=== PATIENT | male | born 1995 | race American Indian/Alaskan Native ===

== ENCOUNTER 2016-10-16 13:11 | Emergency (ER) | payer OTHER ==
[2016-10-16 15:00] LABS: Anion Gap 19 mmol/L; BUN/Creatinine Ratio 21.42; Blood Urea Nitrogen 15 mg/dL (9-20); Calcium 8.8 mg/dL (8.4-10.2); Carbon Dioxide 23 mmol/L (22-30); Chloride 104.3 mmol/L (98-107); Glucose 88 mg/dL (75-100); Potassium 3.6 mmol/L (3.6-5.0); Sodium 143 mmol/L (137-145)
[2016-10-16 15:13] LABS: Hematocrit 44.8 % (35.5-45.6); Hemoglobin 15.3 gm/dl (11.8-15.2); Mean Corpuscular HGB Conc 34 % (32-34); Mean Corpuscular Hemoglobin 30 pg (28-32); Mean Corpuscular Volume 87 fl (84-94); Platelet Count 216 K/mm3 (140-440); Red Blood Count 5.14 M/mm3 (3.65-5.03); Red Cell Distribution Width 13.1 % (13.2-15.2); White Blood Count 7.1 K/mm3 (4.5-11.0)
[2016-10-16 15:14] LABS: Basophils % (Auto) 0.3 % (0.0-1.8); Eosinophils % (Auto) 0.3 % (0.0-4.3)
--- NOTE | 2016-10-16 17:33 | Emergency Department Report ---
Entered by BO SIMPSON, acting as scribe for RADHA NGO PA. ED Chest Pain HPI - General Chief Complaint: Chest Pain Stated Complaint: CHEST PAIN Time Seen by Provider: 10/16/16 16:18 Source: patient Mode of arrival: Ambulatory Limitations: No Limitations - History of Present Illness Initial Comments: 21 year old male with no significant PMHx, presents to ED with chest pain and anxiety attacks for 4 months. 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 He notes his heart feels like it is racing when he wakes up and breaks out into sweats. Patient states he has been working at this job for 9 months, but symptoms started within 4 months of working. He reports symptoms are aggravated while standing and alleviated by sitting down and taking deep breaths. Patient also notes he lost 30 lbs over a period of time. Patient denies any stress, but reports FHx of anxiety problems. Patient smokes cigarettes intermittent and drink EtOH occasionally, but denies drug usage. NKDA. LYON Complaint: chest pain -: month(s) (4 months ) Onset: awoke with symptoms Pain Radiation: none Severity: Unable to Determine Consistency: constant Improves With: rest, remaining still Worsens With: movement re: denies: nausea, vomting, dyspnea Other Symptoms: denies: cough, fever, leg swelling, palpitations, burping Treatments Prior to Arrival: none - Related Data Previous Rx's Medication Instructions Recorded Last Taken Type hydrOXYzine PAMOATE [Vistaril] 25 mg PO Q6HR PRN #20 capsule 10/16/16 Unknown Rx Allergies Allergy/AdvReac Type Severity Reaction Status Date / Time No Known Allergies Allergy Verified 10/16/16 13:27 Heart Score - HEART Score History: Slightly suspicious EKG: Non-specific Age: < 45 Risk factors: No known risk factors Troponin: < normal limit HEART Score: 1 - Critical Actions Critical Actions: 0-3 pts:0.9-1.7%risk of adverse cardiac event.Candidate for discharge ED Review of Systems Comment: All other systems reviewed and negative Constitutional: diaphoresis. denies: chills, fever, weakness Eyes: denies: eye pain, eye discharge, vision change ENT: denies: ear pain, throat pain Respiratory: denies: cough, shortness of breath, wheezing Cardiovascular: chest pain. denies: palpitations Endocrine: no symptoms reported Gastrointestinal: denies: abdominal pain, nausea, vomiting, diarrhea Genitourinary: denies: urgency, dysuria Musculoskeletal: denies: back pain, joint swelling, arthralgia Skin: denies: rash, lesions Neurological: weakness. denies: headache, numbness, paresthesias Psychiatric: anxiety Hematological/Lymphatic: denies: easy bleeding, easy bruising ED Past Medical Hx - Past Medical History Previous Medical History?: No - Surgical History Past Surgical History?: No - Social History Smoking Status: Current Every Day Smoker Substance Use Type: None - Medications Home Medications: Home Medications Medication Instructions Recorded Confirmed Last Taken Type hydrOXYzine PAMOATE [Vistaril] 25 mg PO Q6HR PRN #20 capsule 10/16/16 Unknown Rx ED Physical Exam - General Limitations: No Limitations General appearance: alert, in no apparent distress - Head Head exam: Present: atraumatic, normocephalic - Eye Eye exam: Present: normal appearance - ENT ENT exam: Present: normal orophraynx, mucous membranes moist - Neck Neck exam: Present: normal inspection, full ROM. Absent: tenderness, meningismus - Respiratory Respiratory exam: Present: normal lung sounds bilaterally. Absent: respiratory distress, wheezes, rales, rhonchi, stridor - Cardiovascular Cardiovascular Exam: Present: regular rate, normal rhythm, normal heart sounds ( s1/s2 ). Absent: systolic murmur, diastolic murmur, rubs, gallop - GI/Abdominal GI/Abdominal exam: Present: soft, normal bowel sounds. Absent: distended, tenderness, guarding, rebound, rigid, diminished bowel sounds - Rectal Rectal exam: Present: deferred - Extremities Exam Extremities exam: Present: normal inspection, full ROM, normal capillary refill. Absent: tenderness, pedal edema, joint swelling - Back Exam Back exam: Present: normal inspection, full ROM. Absent: tenderness, paraspinal tenderness, vertebral tenderness - Neurological Exam Neurological exam: Present: alert, oriented X3, normal gait - Psychiatric Psychiatric exam: Present: normal affect, normal mood - Skin Skin exam: Present: warm, dry, intact, normal color. Absent: rash ED Course Vital Signs 10/16/16 13:27 Temperature 97.9 F Pulse Rate 75 Respiratory 16 Rate Blood Pressure 137/84 O2 Sat by Pulse 100 Oximetry ED Medical Decision Making - Lab Data Result diagrams: 10/16/16 14:23 10/16/16 14:23 Vital Signs 10/16/16 13:27 Temperature 97.9 F Pulse Rate 75 Respiratory 16 Rate Blood Pressure 137/84 O2 Sat by Pulse 100 Oximetry Laboratory Results - last 24 hr 10/16/16 10/16/16 10/16/16 14:23 14:23 16:12 WBC 7.1 RBC 5.14 H Hgb 15.3 H Hct 44.8 MCV 87 MCH 30 MCHC 34 RDW 13.1 L Plt Count 216 Lymph % (Auto) 25.8 [place] % (Auto) 8.5 H Eos % (Auto) 0.3 Baso % (Auto) 0.3 Lymph # 1.8 [place] # 0.6 Eos # 0.0 Baso # 0.0 Seg Neutrophils % 65.1 Seg Neutrophils # 4.6 Sodium 143 Potassium 3.6 Chloride 104.3 Carbon Dioxide 23 Anion Gap 19 BUN 15 Creatinine 0.7 L Estimated GFR > 60 BUN/Creatinine Ratio 21.42 Glucose 88 Calcium 8.8 Troponin T < 0.010 < 0.010 - Medical Decision Making patient is resting comfortably at this time. 2 troponins are negative. labwork is unremarkable. VSS and EKG is NSR with PAC and 67 BPM. patient symptoms appear more correlated with anxiety. will start on vistaril. NAD at this time. ED Disposition Clinical Impression: Atypical chest pain, Anxiety Disposition: DC-01 TO HOME OR SELFCARE Is pt being admited?: No Does the pt Need Aspirin: No Condition: Good Instructions: Chest Pain (ED), Angina (ED), Costochondritis (ED) Prescriptions: hydrOXYzine PAMOATE [Vistaril] 25 mg PO Q6HR PRN #20 capsule PRN Reason: Anxiety Referrals: PRIMARY CARE,MD [Primary Care Provider] - 3-5 Days Forms: Work/School Release Form(ED) Time of Disposition: 17:32 This documentation as recorded by the CALVIN gamboa PEARL,accurately reflects the service I personally performed and the decisions made by ,RADHA NGO, PA.
[2016-10-16 17:48] VITALS: BP 134/81
== END 2016-10-16 17:47 | disposition home or self-care (01) ==
LOC: ED 13:11
DX: R07.89 Other chest pain (principal); F41.9 Anxiety disorder, unspecified; F17.200 Nicotine dependence, unspecified, uncomplicated
CPT/HCPCS: 36415; 80048; 84484; 85025; 93005; 93010; 99284

== ENCOUNTER 2017-08-08 02:00 | Emergency (ER) | payer OTHER ==
[2017-08-08] MEDS ORDERED: ASPIRIN PO ONE (02:14)
[2017-08-08 02:24] LABS: Basophils % (Auto) 0.6 % (0.0-1.8); Eosinophils # (Auto) 0.4 K/mm3 (0.0-0.4); Eosinophils % (Auto) 7.2 % (0.0-4.3); Hematocrit 46.3 % (35.5-45.6); Hemoglobin 15.8 gm/dl (11.8-15.2); Lymphocytes # (Auto) 1.3 K/mm3 (1.2-5.4); Lymphocytes % (Auto) 25.5 % (13.4-35.0); Mean Corpuscular HGB Conc 34 % (32-34); Mean Corpuscular Hemoglobin 30 pg (28-32); Mean Corpuscular Volume 87 fl (84-94); Monocytes # (Auto) 0.5 K/mm3 (0.0-0.8); Platelet Count 198 K/mm3 (140-440); Red Blood Count 5.31 M/mm3 (3.65-5.03); Red Cell Distribution Width 13.2 % (13.2-15.2)
[2017-08-08 02:45] LABS: BUN/Creatinine Ratio 20; Blood Urea Nitrogen 12 mg/dL (9-20); Calcium 8.9 mg/dL (8.4-10.2); Hemolysis Index 4
[2017-08-08] MEDS ORDERED: TORADOL IM ONE (10:58)
--- NOTE | 2017-08-08 11:00 | Emergency Department Report ---
HPI - General Chief Complaint: Chest Pain Time Seen by Provider: 08/08/17 10:18 - HPI HPI: The patient is a 22-year-old male with a sniffing history of anxiety, who presents for evaluation of chest pain. The patient reports sudden onset of severe anxiety and subsequent chest pain at 6 AM this morning. He states that his chest pain has been constant since onset, mild in severity, sharp and pounding in quality, improved with rest. The patient denies fever, neck pain, parasthesias, dyspnea, cough, hemoptysis, palpitations, dizziness, syncope, unilateral leg swelling, calf muscle pain. Patient also denies cocaine or other stimulant use, history of DVT or PE, recent immobilization, or history of cancer. ED Past Medical Hx - Past Medical History Previous Medical History?: No - Surgical History Past Surgical History?: No - Social History Smoking Status: Current Every Day Smoker Substance Use Type: Alcohol - Medications Home Medications: Home Medications Medication Instructions Recorded Confirmed Last Taken Type hydrOXYzine PAMOATE [Vistaril] 25 mg PO Q6HR PRN #20 capsule 10/16/16 Unknown Rx Diazepam Tab [Valium] 5 mg PO Q8HR PRN #7 tablet 08/08/17 Unknown Rx ED Review of Systems ROS: Stated complaint: CHEST PAIN Other details as noted in HPI Constitutional: denies: fever ENT: denies: throat or neck pain Respiratory: denies: cough, shortness of breath Cardiovascular: reports: chest pain Endocrine: denies unexplained weight loss or gain Gastrointestinal: denies: abdominal pain, nausea Genitourinary: denies: dysuria Musculoskeletal: denies: leg swelling Skin: denies: rash Neurological: denies: headache Hematological/Lymphatic: denies: easy bleeding or easy bruising Psych: reports anxiety denies sadness or hopelessness Physical Exam - Physical Exam Vital Signs: Vital Signs 08/08/17 08/08/17 08/08/17 01:59 05:57 08:13 Temperature 97.6 F 98.0 F Pulse Rate 82 66 58 L Respiratory 12 18 Rate Blood Pressure 102/65 107/61 O2 Sat by Pulse 98 99 Oximetry 08/08/17 08/08/17 08/08/17 08:18 08:30 08:45 Temperature Pulse Rate 59 L 58 L 57 L Respiratory 21 17 17 Rate Blood Pressure 105/57 102/58 O2 Sat by Pulse 100 100 100 Oximetry 08/08/17 08/08/17 08/08/17 09:00 09:15 09:31 Temperature Pulse Rate 53 L 58 L 59 L Respiratory 14 12 15 Rate Blood Pressure 104/63 94/57 101/53 O2 Sat by Pulse 100 100 100 Oximetry 08/08/17 08/08/17 08/08/17 09:45 10:00 10:15 Temperature Pulse Rate 56 L 49 L 50 L Respiratory 15 13 13 Rate Blood Pressure 95/58 105/66 105/64 O2 Sat by Pulse 100 100 100 Oximetry 08/08/17 10:30 Temperature Pulse Rate 52 L Respiratory 14 Rate Blood Pressure 102/61 O2 Sat by Pulse 100 Oximetry Physical Exam: General: well-nourished, well-developed, no acute distress Head: Normocephalic, atraumatic Eyes: normal sclera ENT: Mucous membranes are pink and moist Neck: trachea midline, neck supple, No neck stiffness, no cervical adenopathy Respiratory: Breath sounds equal bilaterally, no wheezing, rales, or rhonchi Cardio: S1 and S2 present, no murmurs, rubs, gallops, capillary refill is brisk Abdomen: Normoactive bowel sounds, soft abdomen, no rigidity, no guarding or rebound tenderness Chest WALL/Back: No tenderness to palpation of the chest wall, no CVA tenderness with percussion Musc: No pitting edema Skin: No rash Neuro: no facial drooping, normal speech Psych: Normal affect, anxious mood, normal insight, normal cognition, no homicidal suicidal ideation, no hallucinations ED Course Vital Signs 08/08/17 08/08/17 08/08/17 01:59 05:57 08:13 Temperature 97.6 F 98.0 F Pulse Rate 82 66 58 L Respiratory 12 18 Rate Blood Pressure 102/65 107/61 O2 Sat by Pulse 98 99 Oximetry 08/08/17 08/08/17 08/08/17 08:18 08:30 08:45 Temperature Pulse Rate 59 L 58 L 57 L Respiratory 21 17 17 Rate Blood Pressure 105/57 102/58 O2 Sat by Pulse 100 100 100 Oximetry 08/08/17 08/08/17 08/08/17 09:00 09:15 09:31 Temperature Pulse Rate 53 L 58 L 59 L Respiratory 14 12 15 Rate Blood Pressure 104/63 94/57 101/53 O2 Sat by Pulse 100 100 100 Oximetry 08/08/17 08/08/17 08/08/17 09:45 10:00 10:15 Temperature Pulse Rate 56 L 49 L 50 L Respiratory 15 13 13 Rate Blood Pressure 95/58 105/66 105/64 O2 Sat by Pulse 100 100 100 Oximetry 08/08/17 10:30 Temperature Pulse Rate 52 L Respiratory 14 Rate Blood Pressure 102/61 O2 Sat by Pulse 100 Oximetry ED Medical Decision Making - Lab Data Result diagrams: 08/08/17 02:15 08/08/17 02:15 - Medical Decision Making The patient was seen and examined by myself. The patient is placed on a service person and continuous pulse ox. On initial evaluation, the patient was found to be in no distress. EKG was negative for findings suggestive of acute cardiac infarct. Labs and imaging are obtained. The patient was given pain medicine. Chest x-ray is negative for pneumothorax, focal consolidation, pulmonary vascular congestion, pleural effusion, or other obvious acute cardiopulmonary disease process. Lab results were non-concerning including levels of troponin, WBC, hemoglobin, hematocrit, electrolytes, renal function. The patient was reevaluated and reported that their symptoms were markedly improved. As the patient has a PRANAV risk score less than 2, and a well's score less than 2, the patient is at low risk of ACS or pulmonary emboli etiology of their symptoms. The patient is stable for discharge with outpatient follow-up. The patient is given follow-up and return instructions. The patient expressed understanding and agreed with the plan. The patient is discharged in stable condition. Critical care attestation.: If time is entered above; I have spent that time in minutes in the direct care of this critically ill patient, excluding procedure time. ED Disposition Clinical Impression: Acute chest pain, Panic attack Disposition: -01 TO HOME OR SELFCARE Is pt being admited?: No Does the pt Need Aspirin: No Condition: Stable Instructions: Chest Pain (ED) Additional Instructions: Do not take more than the prescribed dose of valium/anxiety medicine/pain medicine, or combine or take the medicine prescribed to you today with other pain medicine, sleeping medicines, other sedatives, or with alcohol, as doing so may cause central nervous system sedation and breathing suppression, and potentially cause you to stop breathing completely and . Additionally, after taking the medicine, do not drive a vehicle, operate heavy machinery, or engage in any activity that if performed drowsy, could cause harm to yourself or others. Referrals: MONICA COOLEY NP [Advanced Practice Nurse] - 3-5 Days KARTHIK BROWNE MD [Referring] - 3-5 Days [facility] [Outside] - 3-5 Days Forms: Work/School Release Form(ED) Time of Disposition: 10:59
--- NOTE | 2017-08-08 11:24 | XRay Report ---
AP CHEST : 08/08/17 02:00:00 CLINICAL: Chest pain. COMPARISON:None FINDINGS: Normal heart and pulmonary vessels. The lungs are normally expanded and clear. The bones and soft tissues are unremarkable.No tubes or lines. IMPRESSION: Normal chest.
[2017-08-08 12:11] VITALS: BP 112/68
== END 2017-08-08 12:11 | disposition home or self-care (01) ==
LOC: ED 02:00
DX: R07.89 Other chest pain (principal); F41.0 Panic disorder [episodic paroxysmal anxiety]; F17.200 Nicotine dependence, unspecified, uncomplicated
CPT/HCPCS: 36415; 71045; 80048; 84484; 85025; 93005; 93010; 96372; 99284; J1885

== ENCOUNTER 2017-09-11 06:26 | Emergency (ER) | payer OTHER ==
[2017-09-11 06:37] VITALS: BP 115/77
[2017-09-11 07:13] LABS: Eosinophils # (Auto) 0.2 K/mm3 (0.0-0.4); Eosinophils % (Auto) 4.8 % (0.0-4.3); Hematocrit 47.6 % (35.5-45.6); Lymphocytes # (Auto) 1.1 K/mm3 (1.2-5.4); Lymphocytes % (Auto) 23.9 % (13.4-35.0); Mean Corpuscular HGB Conc 34 % (32-34); Mean Corpuscular Hemoglobin 30 pg (28-32); Mean Corpuscular Volume 88 fl (84-94); Monocytes # (Auto) 0.5 K/mm3 (0.0-0.8); Monocytes % (Auto) 10.4 % (0.0-7.3); Platelet Count 205 K/mm3 (140-440); Red Blood Count 5.39 M/mm3 (3.65-5.03); Red Cell Distribution Width 13.4 % (13.2-15.2)
[2017-09-11 07:27] LABS: BUN/Creatinine Ratio 19; Blood Urea Nitrogen 13 mg/dL (9-20); Calcium 9.8 mg/dL (8.4-10.2); Hemolysis Index 18
[2017-09-11] MEDS ORDERED: ATIVAN PO ONE (09:30)
[2017-09-11] MEDS ORDERED: LIDOCAINE VISCOUS 2% PO ONE (09:31)
[2017-09-11] MEDS ORDERED: ALUM-MAG HYDROX-SIMETH 200-200-20MG/5ML PO ONE (09:31)
--- NOTE | 2017-09-11 09:35 | Emergency Department Report ---
ED General Adult HPI - General Chief complaint: Chest Pain Stated complaint: CHEST PAIN Time Seen by Provider: 09/11/17 09:12 Source: patient Mode of arrival: Ambulatory Limitations: No Limitations - History of Present Illness Initial comments: mr rodriguez is a 22 year-old man with hx of anxiety who presents with reported panic attack for the last two days. Got much worse overnight when his car broke down. When he made it hoem safely, he had racing HR, tingling in his hands and feet and mild upper abdominal, lower chest pain. [place] light headed and fell to joyce ground. he remembers falling. Was "woken up" by his girlfriend, however remembers everything. No focal weakness. Has fluctuating episdoes where he feels bumb in his hands and feet, has racing HR and feels nervous. Was seen here last month and given valium and hydroxyzine. Is out of his medication. Does not have a PCP. No changes in vision. No RUBI. No trauma. Denies hitting head last night. No fever. Normal PO. - Related Data Previous Rx's Medication Instructions Recorded Last Taken Type hydrOXYzine PAMOATE [Vistaril] 25 mg PO Q6HR PRN #20 capsule 10/16/16 Unknown Rx Diazepam Tab [Valium] 5 mg PO Q8HR PRN #7 tablet 08/08/17 Unknown Rx Hydroxyzine HCl 25 mg PO Q8H PRN #15 tablet 09/11/17 Unknown Rx LORazepam [Ativan] 0.5 mg PO Q8H PRN #9 tablet 09/11/17 Unknown Rx Allergies Allergy/AdvReac Type Severity Reaction Status Date / Time No Known Allergies Allergy Verified 09/11/17 06:32 ED Review of Systems ROS: Stated complaint: CHEST PAIN Other details as noted in HPI Comment: All other systems reviewed and negative ED Past Medical Hx - Past Medical History Previous Medical History?: No - Surgical History Past Surgical History?: No - Social History Smoking Status: Current Every Day Smoker Substance Use Type: Marijuana - Medications Home Medications: Home Medications Medication Instructions Recorded Confirmed Last Taken Type hydrOXYzine PAMOATE [Vistaril] 25 mg PO Q6HR PRN #20 capsule 10/16/16 Unknown Rx Diazepam Tab [Valium] 5 mg PO Q8HR PRN #7 tablet 08/08/17 Unknown Rx Hydroxyzine HCl 25 mg PO Q8H PRN #15 tablet 09/11/17 Unknown Rx LORazepam [Ativan] 0.5 mg PO Q8H PRN #9 tablet 09/11/17 Unknown Rx ED Physical Exam - General Limitations: No Limitations General appearance: alert, in no apparent distress - Head Head exam: Present: atraumatic, normocephalic - Eye Eye exam: Present: normal appearance, PERRL, EOMI - ENT ENT exam: Present: normal exam, mucous membranes moist - Neck Neck exam: Present: normal inspection, full ROM. Absent: tenderness, meningismus - Respiratory Respiratory exam: Present: normal lung sounds bilaterally. Absent: respiratory distress, wheezes, rales - Cardiovascular Cardiovascular Exam: Present: regular rate, normal rhythm. Absent: systolic murmur, diastolic murmur, rubs, gallop - GI/Abdominal GI/Abdominal exam: Present: soft. Absent: distended, tenderness - Rectal Rectal exam: Present: deferred - Extremities Exam Extremities exam: Present: normal inspection, normal capillary refill. Absent: tenderness - Back Exam Back exam: Present: normal inspection. Absent: tenderness, CVA tenderness (R) - Neurological Exam Neurological exam: Present: alert, oriented X3, CN II-XII intact, normal gait. Absent: motor sensory deficit - Psychiatric Psychiatric exam: Present: normal affect, normal mood, anxious - Skin Skin exam: Present: warm, dry, intact, normal color. Absent: rash ED Course Vital Signs 09/11/17 06:32 Temperature 97.5 F L Pulse Rate 77 Respiratory 20 Rate Blood Pressure 115/77 O2 Sat by Pulse 100 Oximetry ED Medical Decision Making - Lab Data Result diagrams: 09/11/17 06:55 09/11/17 06:55 Lab Results 09/11/17 09/11/17 Range/Units 06:55 06:55 WBC 4.7 (4.5-11.0) K/mm3 RBC 5.39 H (3.65-5.03) M/mm3 Hgb 16.0 H (11.8-15.2) gm/dl Hct 47.6 H (35.5-45.6) % MCV 88 (84-94) fl MCH 30 (28-32) pg MCHC 34 (32-34) % RDW 13.4 (13.2-15.2) % Plt Count 205 (140-440) K/mm3 Lymph % (Auto) 23.9 (13.4-35.0) % [place] % (Auto) 10.4 H (0.0-7.3) % Eos % (Auto) 4.8 H (0.0-4.3) % Baso % (Auto) 1.0 (0.0-1.8) % Lymph # 1.1 L (1.2-5.4) K/mm3 [place] # 0.5 (0.0-0.8) K/mm3 Eos # 0.2 (0.0-0.4) K/mm3 Baso # 0.0 (0.0-0.1) K/mm3 Seg Neutrophils % 59.9 (40.0-70.0) % Seg Neutrophils # 2.8 (1.8-7.7) K/mm3 Sodium 139 (137-145) mmol/L Potassium 4.6 (3.6-5.0) mmol/L Chloride 101.4 (98-107) mmol/L Carbon Dioxide 26 (22-30) mmol/L Anion Gap 16 mmol/L BUN 13 (9-20) mg/dL Creatinine 0.7 L (0.8-1.5) mg/dL Estimated GFR > 60 ml/min BUN/Creatinine Ratio 19 % Glucose 86 (75-100) mg/dL Calcium 9.8 (8.4-10.2) mg/dL Troponin T < 0.010 (0.00-0.029) ng/mL - EKG Data 09/11/17 06:48 HJR 75, sinus, normal axis, intervals wnl, sloping QRS into slight ST elevation in I more consistent with ANTONIA than ischemia - Medical Decision Making mr Rodriguez is a 22 year-old man with hx of anxiety who presents with various complaints. Sounds like anxiety for two days with near syncopal episode last night. Now with abdominal pain. no longer with chest pain. No shortness of breath here. neuro intact. Unremarkable physical exam. Suspect anxiety vs arrhythmia vs ACS vs electrolyte derangement vs drug use. EKG non-ischemic, normal intervals, not brugada morphology. No murmur. Lytes wnl. CBC wnl. Improvement in abdominal pain with GI cocktail. Resolution of symptoms with ativan, PO. Suspect this is anxiety. Will dc with ativan and hydroxyzine again with referral to PCP for anxiety management and likely outpatient echo to eval for mitral regurgitation. Given [facility] medical handout for follow-up.. Given care instructions, return precautions. DC to home Critical care attestation.: If time is entered above; I have spent that time in minutes in the direct care of this critically ill patient, excluding procedure time. ED Disposition Clinical Impression: Anxiety Disposition: DC-01 TO HOME OR SELFCARE Is pt being admited?: No Does the pt Need Aspirin: No Condition: Stable Instructions: Generalized Anxiety Disorder (ED), Anxiety (ED) Prescriptions: Hydroxyzine HCl 25 mg PO Q8H PRN #15 tablet PRN Reason: Anxiety LORazepam [Ativan] 0.5 mg PO Q8H PRN #9 tablet PRN Reason: Anxiety Referrals: PRIMARY CARE, [Primary Care Provider] - 3-5 Days
== END 2017-09-11 11:21 | disposition home or self-care (01) ==
LOC: ED 06:26
DX: F41.9 Anxiety disorder, unspecified (principal); R42 Dizziness and giddiness; R20.2 Paresthesia of skin; F17.200 Nicotine dependence, unspecified, uncomplicated; F12.10 Cannabis abuse, uncomplicated
CPT/HCPCS: 36415; 80048; 84484; 85025; 93005; 93010; 99284

== ENCOUNTER 2017-10-30 00:20 | Emergency (ER) | payer SELFPAY ==
[2017-10-30] MEDS ORDERED: ULTRAM PO ONE (04:16)
[2017-10-30] MEDS ORDERED: BOOSTRIX IM ONE (04:16)
[2017-10-30] MEDS ORDERED: ULTRAM ONE (04:16)
--- NOTE | 2017-10-30 04:34 | Emergency Department Report ---
ED Lower Extremity HPI - General Chief Complaint: Extremity Injury, Lower Stated Complaint: STUCK WITH NAIL RT FOOT/PAIN Time Seen by Provider: 10/30/17 04:29 Source: patient Mode of arrival: Ambulatory Limitations: No Limitations - History of Present Illness Initial Comments: Patient is a 22-year-old -[place] male, patient states he removed the nail intact those shoes as I was asked now complains of 4/10 foot pain and throbbing however. Patient refuses x-rays right foot patient's partial weight bearing there is no deformity and minimal swelling mostly -: days(s) (osteotomy 10Is just) Injury: Ankle: Right, Left Type of Injury: puncture wound Severity: moderate Severity scale (0 -10): 5 Improves With: NSAID Worsens With: weight bearing, movement, palpation Context: fall Other Symptoms: loss of consciousness, chest pain, SOB Associated Symptoms: snap/pop sensation, tingling. denies: swelling, numbness, unable to bear weight, able to partially bear weight, ambulatory Treatments Prior to Arrival: other - Related Data Previous Rx's Medication Instructions Recorded Last Taken Type hydrOXYzine PAMOATE [Vistaril] 25 mg PO Q6HR PRN #20 capsule 10/16/16 Unknown Rx diazePAM TAB [Valium] 5 mg PO Q8HR PRN #7 tablet 08/08/17 Unknown Rx LORazepam [Ativan] 0.5 mg PO Q8H PRN #9 tablet 09/11/17 Unknown Rx hydrOXYzine HCl [Hydroxyzine HCl] 25 mg PO Q8H PRN #15 tablet 09/11/17 Unknown Rx Ciprofloxacin HCl [Cipro] 500 mg PO 20 #1 tablet 10/30/17 Unknown Rx Naproxen [Naprosyn TAB] 500 mg PO BID PRN #20 tablet 10/30/17 Unknown Rx Allergies Allergy/AdvReac Type Severity Reaction Status Date / Time No Known Allergies Allergy Verified 09/11/17 06:32 ED Review of Systems ROS: Stated complaint: STUCK WITH NAIL RT FOOT/PAIN Other details as noted in HPI Constitutional: denies: chills, fever Eyes: denies: eye pain, eye discharge, vision change ENT: denies: ear pain, throat pain Respiratory: denies: cough, shortness of breath, wheezing Cardiovascular: denies: chest pain, palpitations Endocrine: no symptoms reported Gastrointestinal: nausea, vomiting Genitourinary: denies: urgency, dysuria Musculoskeletal: myalgia Skin: denies: rash, lesions Neurological: denies: headache, weakness, paresthesias Psychiatric: denies: anxiety, depression Hematological/Lymphatic: denies: easy bleeding, easy bruising ED Past Medical Hx - Past Medical History Previous Medical History?: No - Surgical History Past Surgical History?: No - Social History Smoking Status: Current Every Day Smoker Substance Use Type: None - Medications Home Medications: Home Medications Medication Instructions Recorded Confirmed Last Taken Type hydrOXYzine PAMOATE [Vistaril] 25 mg PO Q6HR PRN #20 capsule 10/16/16 Unknown Rx diazePAM TAB [Valium] 5 mg PO Q8HR PRN #7 tablet 08/08/17 Unknown Rx LORazepam [Ativan] 0.5 mg PO Q8H PRN #9 tablet 09/11/17 Unknown Rx hydrOXYzine HCl [Hydroxyzine HCl] 25 mg PO Q8H PRN #15 tablet 09/11/17 Unknown Rx Ciprofloxacin HCl [Cipro] 500 mg PO 20 #1 tablet 10/30/17 Unknown Rx Naproxen [Naprosyn TAB] 500 mg PO BID PRN #20 tablet 10/30/17 Unknown Rx ED Physical Exam - General Limitations: No Limitations General appearance: alert, in no apparent distress - Head Head exam: Present: atraumatic, normocephalic - Eye Eye exam: Present: normal appearance - ENT ENT exam: Present: mucous membranes moist - Neck Neck exam: Present: normal inspection - Respiratory Respiratory exam: Present: normal lung sounds bilaterally. Absent: respiratory distress - Cardiovascular Cardiovascular Exam: Present: regular rate, normal rhythm. Absent: systolic murmur, diastolic murmur, rubs, gallop - GI/Abdominal GI/Abdominal exam: Present: soft, normal bowel sounds - Extremities Exam Extremities exam: Present: normal inspection, full ROM. Absent: tenderness - Back Exam Back exam: Present: normal inspection, full ROM. Absent: tenderness, CVA tenderness (R) - Neurological Exam Neurological exam: Present: alert, oriented X3, CN II-XII intact, normal gait, reflexes normal. Absent: motor sensory deficit - Psychiatric Psychiatric exam: Present: normal affect, normal mood - Skin Skin exam: Present: warm, dry, intact, normal color. Absent: rash ED Course Vital Signs 10/30/17 10/30/17 00:28 04:17 Temperature 97.8 F Pulse Rate 95 H Respiratory 16 18 Rate Blood Pressure 127/98 O2 Sat by Pulse 100 Oximetry ED Lower Extremity MDM - EKG Data When compared to previous EKG there are: previous EKG unavailable - Radiology Data Radiology results: report reviewed, image reviewed interpreted by me: pt refused xray - Medical Decision Making His puncture wound to right foot patient states moderate pain for within a bowel movement no numbness or tingling patient is ambulatory, plan tetanus shot Cipro follow-up wound check in 3-4 days with PCP patient verbalizes agreement and understand with [facility] to home in stable condition at this time Critical care attestation.: If time is entered above; I have spent that time in minutes in the direct care of this critically ill patient, excluding procedure time. ED Disposition Clinical Impression: Puncture wound of foot Qualifiers: Encounter type: initial encounter Laterality: right Qualified Code(s): S91.331A - Puncture wound without foreign body, right foot, initial encounter Disposition: DC-01 TO HOME OR SELFCARE Is pt being admited?: No Does the pt Need Aspirin: No Condition: Good Instructions: Puncture Wound (ED) Prescriptions: Ciprofloxacin HCl [Cipro] 500 mg PO 20 #1 tablet Naproxen [Naprosyn TAB] 500 mg PO BID PRN #20 tablet PRN Reason: pain Referrals: PRIMARY CARE, [Primary Care Provider] - 3-5 Days Forms: Work/School Release Form(ED) Time of Disposition: 04:56
[2017-10-30 05:09] VITALS: BP 128/80
== END 2017-10-30 05:13 | disposition home or self-care (01) ==
LOC: ED 00:20
DX: S91.331A Puncture wound without foreign body, right foot, initial encounter (principal); F17.200 Nicotine dependence, unspecified, uncomplicated; X58.XXXA Exposure to other specified factors, initial encounter; Y93.89 Activity, other specified; Y92.89 Other specified places as the place of occurrence of the external cause; Y99.8 Other external cause status
CPT/HCPCS: 90715; 99282

== ENCOUNTER 2018-07-14 00:22 | Emergency (ER) | payer SELFPAY ==
[2018-07-14 00:41] VITALS: BP 122/83
== END 2018-07-14 01:35 | disposition left against medical advice (07) ==
LOC: ED 00:22
DX: M54.9 Dorsalgia, unspecified (principal); Z53.21 Procedure and treatment not carried out due to patient leaving prior to being seen by health care provider

== ENCOUNTER 2018-08-01 15:01 | Emergency (ER) | payer SELFPAY ==
[2018-08-01 15:34] VITALS: BP 138/81
--- NOTE | 2018-08-01 15:37 | Emergency Department Report ---
Blank Doc - Documentation Documentation: 23 yo male presents to Ed with a hx of anxiety do presents cc of chest pain also cc of possibly anxiety attack, states that he is under a lot of stress factors cc of soreness to chest muscles because he was stretching ACC eval
== END 2018-08-01 17:30 | disposition left against medical advice (07) ==
LOC: ED 15:01
DX: R07.89 Other chest pain (principal); Z53.21 Procedure and treatment not carried out due to patient leaving prior to being seen by health care provider
CPT/HCPCS: 93005; 93010

== ENCOUNTER 2021-09-15 16:08 | Emergency (ER) | payer SELFPAY ==
[2021-09-15 16:59] VITALS: BP 122/65
== END 2021-09-16 17:30 | disposition left against medical advice (07) ==
LOC: ED 16:08
DX: M54.50 Low back pain, unspecified (principal); Z53.21 Procedure and treatment not carried out due to patient leaving prior to being seen by health care provider